=== PATIENT | female | born 1955 | race Caucasian/White ===

== ENCOUNTER 2018-04-04 16:22 | Emergency (ER) | payer OTHER ==
--- NOTE | 2018-04-04 16:24 | ED Physician Documentation ---
General Adult - HISTORIAN Historian: patient - HPI Stated Complaint: chest pain/heart fluttering Chief Complaint: Chest Pain Onset: hours (5) Timing: better Severity: mild Further Comments: yes (She states she had "pretty hard" chest pain this am around 4 . 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 She states she did take her b/p with this co drivers wrist b/p cuff and it was very high. She states she is using a nicotine patch and Wellbutrin for aide in stopping smoking. She states yesterday was a very life stressful day and she did (even with patch on) smoke a whole pack of cigarettes. She states she is thinking after all this she was and is having some anxiety. She denies any family history of cardiac issues. She did not have nausea at the time but a few hours later she did feel flush then got the chills and goosebumps. Denies any current nausea and she denies any current chest pain or palpatations.) Last known Well Code/Unknown Code: Unknown - ROS CONST: no problems EYES/ENT: none CVS/RESP: chest pain. denies: shortness of breath, cough GI/: none MS/SKIN/LYMPH: none NEURO/PSYCH: anxiety. denies: headache, dizziness - PAST HX Past History: other (hypothyroidism ) Surgeries/Procedures: hysterectomy Immunizations: UTD Allergies/Adverse Reactions: Allergies Allergy/AdvReac Type Severity Reaction Status Date / Time No Known Allergies Allergy Verified 04/04/18 17:06 Home Medications: Ambulatory Orders Medication Instructions Recorded Unobtainable [Unobtainable] 04/04/18 - SOCIAL HX Smoking History: cigarettes Alcohol Use: none Drug Use: none - FAMILY HX Family History: No - REVIEWED ASSESSMENTS Nursing Assessment Reviewed: Yes Vitals Reviewed: Yes Progress - Progress Progress: 1730: discussed results and plan - she is agreeable DG ED Results Lab/Radiology - Radiology Radiology Impressions: PA and lateral chest History: CXR, CHEST PAIN AT 4AM THIS MORNING, PT STATES IT IMPROVED THROUGHOUT THE DAY BUT STILL FEELING FLUTTERS IN CHEST (Hx) / ITS.REASON Chest pain PA and lateral chest dated April 04, 2018 is without prior radiographs for comparison. The frontal radiograph is limited secondary to attenuation associated with the patient's bilateral breast implants. Taking this into account, the lungs appear clear. Pulmonary vascularity is normal. The cardiomediastinal silhouette is normal in size and configuration. Impression: No active disease. Frontal radiograph relatively limited due to presence of large breast prostheses. Electronically signed on Apr 04, 2018 5:15:51 PM CDT by: Carolyne Vivar General Adult Physical Exam - PHYSICAL EXAM GENERAL APPEARANCE: no distress EENT: eye inspection normal NECK: normal inspection, thyroid normal RESPIRATORY: no resp distress, chest non-tender, breath sounds normal CVS: reg rate & rhythm, heart sounds normal, equal pulses, no murmur ABDOMEN: soft, no organomegaly, normal bowel sounds, no distension BACK: normal inspection SKIN: warm/dry, normal color EXTREMITIES: non-tender, normal range of motion, no evidence of injury, no edema NEURO: oriented X3, CN's nml as tested, motor nml, sensation nml, mood/affect nml, cognition normal Discharge Clincal Impression: Chest pain Qualifiers: Chest pain type: unspecified Qualified Code(s): R07.9 - Chest pain, unspecified Referrals: Primary Doctor,No [Primary Care Provider] - 2 Days Comments: 1. DO not smoke added cigarettes with patch 2. Hydroxizine 25 mg take 1 by mouth every 12 hours as needed for anxiety 3. Keep follow up with PCP 4. Return to ER for any further chest pains or concerns Condition: Stable Disposition: 01 HOME, SELF-CARE Decision to Admit: NO Date of Decison to Admit: 04/04/18 Decision Time: 17:42
[2018-04-04 17:01] LABS: BASOPHILS % 0.7 (0.0-1.5); EOSINOPHILS % 4.1 % (0.0-6.8); MEAN CORPUSCULAR HEMOGLOBIN 30.9 pg (28.0-34.0); MEAN CORPUSCULAR VOLUME 90.4 fl (80.0-100.0); MONOCYTES % 5.6 % (0.0-11.0); NEUTROPHILS # 3.4 # k/uL (1.4-7.7)
[2018-04-04] MEDS: ASPIRIN 81 MG CHEW TAB PO ONE (17:01)
[2018-04-04] MEDS: ASPIRIN 81 MG CHEW TAB ONE (17:01)
[2018-04-04 17:08] LABS: eGFR (African) > 60; eGFR (Non-African) > 60
[2018-04-04] MEDS: 0.9 % SODIUM CHLORIDE 1,000 ML IV ONE (17:18)
--- NOTE | 2018-04-04 17:46 | Diagnostic Imaging Report ---
SURENDRA WESTFALL [facility] [id number] Counts Include [address] At [facility] [address] [place], [place]. [address] Report Submission Date: Apr 04, 2018 5:15:51 PM CDT Patient Study Name: MIKE RIVERA Date: Apr 04, 2018 4:57:46 PM CDT Modality Type: DX Gender: F Description: CHEST : 57 Institution: [facility] Physician: SURENDRA WESTFALL PA and lateral chest History: CXR, CHEST PAIN AT 4AM THIS MORNING, PT STATES IT IMPROVED THROUGHOUT THE DAY BUT STILL FEELING FLUTTERS IN CHEST (Hx) / ITS.REASON Chest pain PA and lateral chest dated April 04, 2018 is without prior radiographs for comparison. The frontal radiograph is limited secondary to attenuation associated with the patient's bilateral breast implants. Taking this into account, the lungs appear clear. Pulmonary vascularity is normal. The cardiomediastinal silhouette is normal in size and configuration. Impression: No active disease. Frontal radiograph relatively limited due to presence of large breast prostheses. Electronically signed on Apr 04, 2018 5:15:51 PM CDT by: Carolyne AGUILERA
[2018-04-04 17:58] VITALS: BP 130/63
== END 2018-04-04 17:57 | disposition home or self-care (01) ==
LOC: ED 16:22
DX: R07.9 Chest pain, unspecified (principal)
CPT/HCPCS: 71046; 80053; 82550; 84484; 85025; J7030; 96365; 99284; S1016